=== PATIENT | female | born 1980 | race Two or more races ===

== ENCOUNTER 2016-11-07 18:04 | Emergency (ER) | payer OTHER ==
--- NOTE | 2016-11-07 18:34 | UC ---
Headache HPI - HPI Summary HPI Summary: 36 yo female with the onset of her typical headache yesterday bandlike around head and slightly pounding today headache got worse associated with photophobia headache now involves just her left side has never had a similar gerard headache was severe earlier but has eased up - History Of Current Complaint Chief Complaint: UCHeadache Stated Complaint: HEADACHE Time Seen by Provider: 11/07/16 18:33 Hx Obtained From: Patient Hx Last Menstrual Period: last week Onset/Duration: Sudden Onset Onset Of Symptoms: Gradual Initially Headache Was: "Worst Headache Ever", Initial Pain Scale(0-10)= - 4 Currently Pain Is: Current Pain Scale(0-10)= - 6 Pain Scale Used: 0-10 Numeric Timing: Constant Character: Throbbing Location of Headache: Temporal - Left Aggravating Factor(s): Bright Lights Associated Signs And Symptoms: Negative: Dizziness, Seizure, Nausea, Vomiting, Sinus Pressure, Fever, Neck Pain, Neck Stiffness, Decreased LOC, Visual Changes - Allergies/Home Medications Allergies/Adverse Reactions: Allergies Allergy/AdvReac Type Severity Reaction Status Date / Time No Known Allergies Allergy Verified 11/07/16 18:16 PMH/Surg Hx/FS Hx/Imm Hx Previously Healthy: Yes - Surgical History Surgical History: Yes Surgery Procedure, Year, and Place: wisdom teeth extraction 10/25/16, Appendectomy. Growth on ovary removed 2010 - Family History Known Family History: Positive: Hypertension, Other - migraines - Social History Alcohol Use: Occasionally Alcohol Amount: once a week Substance Use Type: None Smoking Status (MU): Never Smoked Tobacco Review of Systems Constitutional: Negative Skin: Negative Eyes: Photophobia ENT: Negative Respiratory: Negative Cardiovascular: Negative Gastrointestinal: Negative Genitourinary: Negative Motor: Negative Neurovascular: Negative Musculoskeletal: Negative Neurological: Headache Psychological: Negative Is Patient Immunocompromised?: No All Other Systems Reviewed And Are Negative: Yes Physical Exam Triage Information Reviewed: Yes Appearance: Well-Appearing, No Pain Distress, Well-Nourished Vital Signs: Initial Vital Signs Temp 97.9 F 11/07/16 18:10 Pulse 66 11/07/16 18:10 Resp 18 11/07/16 18:10 BP 129/84 11/07/16 18:10 Pulse Ox 100 11/07/16 18:10 Eyes: Positive: Conjunctiva Clear ENT: Positive: Hearing grossly normal. Negative: Nasal congestion, Nasal drainage, Tonsillar exudate, Trismus, Muffled/hoarse voice Dental: Negative: Gross Decay/Caries @, Dental Fracture @ Neck: Positive: Supple, Nontender, No Lymphadenopathy Respiratory: Positive: Lungs clear, Normal breath sounds, No respiratory distress Cardiovascular: Positive: RRR, No Murmur Musculoskeletal: Positive: ROM Intact, No Edema Neurological: Positive: Alert Psychological Exam: Normal Skin Exam: Normal Diagnostics - Radiology No standard instances Xray Interpretation: No Acute Changes Radiology Interpretation Completed By: Radiologist Headache Course/Dx - Differential Dx/Diagnosis Provider Diagnoses: headache-suspect migraine Discharge - Discharge Plan Condition: Stable Disposition: HOME Prescriptions: Naproxen Sodium [Naproxen Sodium 500 MG TAB] 500 mg PO BID PRN #30 tab PRN Reason: Pain Patient Education Materials: Acute Headache (ED) Referrals: [facility]ICIAN REFERRAL [Outside] - As Soon As Possible (call to find a local MD ) Additional Instructions: to ER if symptoms worsen recheck in 1-2 days if not better
--- NOTE | 2016-11-07 19:09 | RAD ---
INDICATION: Left-sided headache COMPARISON: None. TECHNIQUE: Contiguous axial sections of the brain were obtained from the skull base to the vertex without contrast. FINDINGS: The ventricles, cisterns and sulci are within normal limits. The denny-white matter differentiation is adequately maintained and there is no sulcal effacement. No significant focal abnormality or mass effect is present. There is no evidence for intracranial hemorrhage. No significant focal osseous abnormality is present. The visualized portion of the paranasal sinuses and mastoid air cells appear clear. IMPRESSION: Normal CT of the brain.
[2016-11-07] MEDS ORDERED: Naproxen TAB* 250 MG PO ONE (19:21)
== END 2016-11-07 19:26 | disposition home or self-care (01) ==
LOC: UCEAST 18:04
DX: G43.909 Migraine, unspecified, not intractable, without status migrainosus (principal)
CPT/HCPCS: 70450; 99202; A9270-GY; G0463

== ENCOUNTER 2018-02-12 08:39 | Emergency (ER) | payer OTHER ==
[2018-02-12 08:53] VITALS: BP 147/99
[2018-02-12] MEDS ORDERED: Aspirin 81 mg CHEW TAB* 81 MG TAB.CHEW PO ONE (09:02)
--- NOTE | 2018-02-12 09:05 | UC ---
Cardiac HPI - HPI Summary HPI Summary: WOKE UP THIS MORNING WITH SHARP LEFT-SIDED CHEST PAIN THAT RADIATES THROUGH TO HER BACK. WORSE WITH EXERTION AND BETTER WITH REST. DENIES SHORTNESS OF BREATH , NAUSEA, DIAPHORESIS. NO PERSONAL OR FAMILY HISTORY OF CARDIAC DISEASE. PT IS A NON SMOKER. NO HORMONE USE. CALLED HER PCP OFFICE WHO ADVISED SHE PRESENT TO THE EMERGENCY DEPARTMENT BUT THE PATIENT DECIDED TO COME HERE INSTEAD. - History of Current Complaint Chief Complaint: UCChestPain Stated Complaint: CHEST PAIN Time Seen by Provider: 02/12/18 08:40 Hx Obtained From: Patient Hx Last Menstrual Period: 01/31/18 Onset/Duration: Sudden Onset, Lasting Hours, Still Present Timing: Constant Initial Severity: Moderate Current Severity: Moderate Pain Intensity: 7 Chest Pain Location: Left Anterior Character: Sharp/Stabbing Aggravating Factor(s): Exertion Alleviating Factor(s): Rest Associated Signs & Symptoms: Positive: Back Pain - Allergy/Home Medications Allergies/Adverse Reactions: Allergies Allergy/AdvReac Type Severity Reaction Status Date / Time No Known Allergies Allergy Verified 02/12/18 08:52 PMH/Surg Hx/FS Hx/Imm Hx Previously Healthy: Yes - Surgical History Surgical History: Yes Surgery Procedure, Year, and Place: wisdom teeth extraction 10/25/16, Appendectomy. Growth on ovary removed 2010 - Family History Known Family History: Positive: Hypertension, Other - migraines - Social History Alcohol Use: Occasionally Alcohol Amount: once a week Substance Use Type: None Smoking Status (MU): Never Smoked Tobacco Review of Systems All Other Systems Reviewed And Are Negative: Yes Constitutional: Positive: Fever Skin: Positive: Negative Respiratory: Positive: Negative Cardiovascular: Positive: Chest Pain Gastrointestinal: Positive: Negative Physical Exam Triage Information Reviewed: Yes Appearance: Well-Appearing, No Pain Distress, Well-Nourished Vital Signs: Initial Vital Signs Temp 97.6 F 02/12/18 08:48 Pulse 107 02/12/18 08:48 Resp 18 02/12/18 08:48 BP 147/99 02/12/18 08:48 Pulse Ox 97 02/12/18 08:48 Vital Signs Reviewed: Yes Eyes: Positive: Conjunctiva Clear ENT: Positive: Hearing grossly normal, Pharynx normal, TMs normal Neck: Positive: Supple, Nontender, No Lymphadenopathy Respiratory Exam: Normal Cardiovascular: Positive: Tachycardia Abdomen Description: Positive: Soft Musculoskeletal: Positive: No Edema Neurological: Positive: Alert Psychological: Positive: Age Appropriate Behavior Skin: Negative: Rashes Diagnostics - EKG Cardiac Rate: Tachycardia - 100BPM Cardiac Rhythm: Sinus: Normal Ectopy: None ST Segment: Normal - Assessment/Plan Course Of Treatment: DISCUSSED WITH PATIENT HER LOW RISK FOR CARDIAC DISEASE. PAIN MAY BE MUSCULOSKELETAL IN NATURE BUT WE ARE UNABLE TO DO A CARDIAC WORKUP HERE. PATIENT IS CONCERNED ABOUT HER HEART AND WISHES TO BE EVALUATED IN THE EMERGENCY DEPARTMENT. PT OFFERED TRANSPORT TO THE ED BY AMBULANCE BUT DECLINES. ADVISED THAT BY NOT TRAVELING IN A MONITORED SETTING SHE COULD BE RISKING WORSENING OF HER CONDITION THAT COULD POSE A THREAT TO HER LIFE, HEALTH AND MEDICAL SAFETY. SHE VERBALIZES UNDERSTANDING AND CONTINUES TO DECLINE AMBULANCE TRANSFER. - Clinical Impression Provider Diagnosis: Chest pain Discharge - Sign-Out/Discharge Documenting (check all that apply): Patient Departure All imaging exams completed and their final reports reviewed: No Studies - Discharge Plan Condition: Stable Disposition: TRANS HIGHER LVL OF CARE FAC Patient Education Materials: Chest Pain (ED) Referrals: Irene Multani MD [Primary Care Provider] - If Needed Additional Instructions: YOU RECEIVED 4 ASA 81MG IN THE . GO DIRECTLY TO [facility] [place] ED FROM HERE FOR FURTHER EVALUATION. YOU HAVE DECLINED TRANSFER TO THE ED BY AMBULANCE. BE ADVISED THAT BY NOT TRAVELING IN A MONITORED SETTING YOU COULD BE RISKING WORSENING OF YOUR CONDITION THAT COULD POSE A THREAT TO YOUR LIFE, HEALTH AND MEDICAL SAFETY. - Billing Disposition and Condition Condition: STABLE Disposition: Trans Higher Lvl of Care Fac
== END 2018-02-12 09:10 | disposition short-term general hospital (02) ==
LOC: UCEAST 08:39
DX: R07.9 Chest pain, unspecified (principal)
CPT/HCPCS: 93005; 99202; A9270-GY; G0463

== ENCOUNTER 2018-07-01 21:35 | Emergency (ER) | payer OTHER ==
[2018-07-01] MEDS ORDERED: Ibuprofen TAB* 600 MG PO ONE (21:44)
--- NOTE | 2018-07-01 21:50 | UC ---
Lower Extremity/Ankle HPI - HPI Summary HPI Summary: injured left ankle sliding in to 3rd base about 30 minutes ago. has been able to WB- - History of Current Complaint Chief Complaint: UCLowerExtremity Stated Complaint: ANKLE INJURY Time Seen by Provider: 07/01/18 21:40 Hx Obtained From: Patient ?: No Onset/Duration: Sudden Onset Severity Initially: Mild Severity Currently: Mild Aggravating Factor(s): Standing, Ambulation Alleviating Factor(s): Rest, Elevation Able to Bear Weight: Yes - Allergies/Home Medications Allergies/Adverse Reactions: Allergies Allergy/AdvReac Type Severity Reaction Status Date / Time No Known Allergies Allergy Verified 07/01/18 21:50 PMH/Surg Hx/FS Hx/Imm Hx Previously Healthy: Yes - Surgical History Surgical History: Yes Surgery Procedure, Year, and Place: wisdom teeth extraction 10/25/16, Appendectomy. Growth on ovary removed 2010 - Family History Known Family History: Positive: Hypertension, Other - migraines Negative: Cardiac Disease - Social History Occupation: Employed Full-time Lives: With Family Alcohol Use: Occasionally Alcohol Amount: once a week Substance Use Type: None Smoking Status (MU): Never Smoked Tobacco Review of Systems All Other Systems Reviewed And Are Negative: Yes Constitutional: Positive: Negative Skin: Positive: Negative Eyes: Positive: Negative ENT: Positive: Negative Respiratory: Positive: Negative Cardiovascular: Positive: Negative Gastrointestinal: Positive: Negative Genitourinary: Positive: Negative Motor: Positive: Negative Neurovascular: Positive: Negative Musculoskeletal: Positive: Arthralgia - left medial and lateral ankle Neurological: Positive: Negative Psychological: Positive: Negative Is Patient Immunocompromised?: No Physical Exam Triage Information Reviewed: Yes Appearance: Well-Appearing, No Pain Distress, Well-Nourished Vital Signs Reviewed: Yes Eye Exam: Normal Eyes: Positive: Conjunctiva Clear ENT Exam: Normal ENT: Positive: Normal ENT inspection, Hearing grossly normal. Negative: Trismus , Muffled voice, Hoarse voice Dental Exam: Normal Neck exam: Normal Neck: Positive: Supple, Nontender Respiratory Exam: Normal Respiratory: Positive: Chest non-tender, No respiratory distress, No accessory muscle use Cardiovascular Exam: Normal Cardiovascular: Positive: RRR, Pulses Normal, Brisk Capillary Refill Musculoskeletal Exam: Other - left ankle Musculoskeletal: Positive: Strength Limited @ - minimal limitation, ROM Limited @ - minimal limitation, Edema @ Neurological Exam: Normal Neurological: Positive: Alert, Muscle Tone Normal Psychological Exam: Normal Psychological: Positive: Normal Response To Family Skin Exam: Normal Diagnostics - Radiology No standard instances Radiology Interpretation Completed By: ED Physician - displaced distal fibula fx Lower Extremity Course/Dx - Course Course Of Treatment: non weight bearing, cam boot crutches, pain control maddie, follow with orthopedic MD 1-2 days - Differential Dx/Diagnosis Provider Diagnosis: Closed fracture of lateral malleolus of left ankle Discharge - Sign-Out/Discharge Documenting (check all that apply): Patient Departure All imaging exams completed and their final reports reviewed: No - Discharge Plan Condition: Stable Disposition: HOME Prescriptions: Hydrocodone/Acetaminophen [Hydrocodone-Acetamin 5-325 mg] 1 - 2 each PO Q4HR PRN #20 tablet MDD 8 PRN Reason: pain Ibuprofen TAB* [Motrin TAB* 600 MG] 600 mg PO Q6H PRN #40 tab PRN Reason: pain Patient Education Materials: Ankle Fracture (ED), Crutch Instructions (ED), R.I.C.E. Treatment (ED) Forms: *Work Release Referrals: Gallo Ferris MD [Medical Doctor] - (1-2 days---call in morning for appointment) Additional Instructions: NO change in initial management. Needs ortho follow up - Billing Disposition and Condition Condition: STABLE Disposition: Home - Attestation Statements Provider Attestation: I was available for consult. This patient was seen by the LASHELL. The patient was not presented to , seen by or examined by mt -Gabbi Garcia MD
[2018-07-01 22:03] VITALS: BP 119/87
[2018-07-01] MEDS ORDERED: HYDROcodone/ACETAMIN 5-325 MG* 1 TAB PO ONE (22:08)
--- NOTE | 2018-07-02 10:51 | UC ---
- EKG/XRAY/CT Xray Comments: left ankle - oblique fracture of distal fibular with widening of mortise Course/Dx - Diagnoses Provider Diagnoses: Closed fracture of lateral malleolus of left ankle Discharge - Sign-Out/Discharge Documenting (check all that apply): Post-Discharge Follow Up All imaging exams completed and their final reports reviewed: Yes - Discharge Plan Condition: Stable Disposition: HOME Prescriptions: Hydrocodone/Acetaminophen [Hydrocodone-Acetamin 5-325 mg] 1 - 2 each PO Q4HR PRN #20 tablet MDD 8 PRN Reason: pain Ibuprofen TAB* [Motrin TAB* 600 MG] 600 mg PO Q6H PRN #40 tab PRN Reason: pain Patient Education Materials: Ankle Fracture (ED), Crutch Instructions (ED), R.I.C.E. Treatment (ED) Forms: *Work Release Referrals: Gallo Ferris MD [Medical Doctor] - (1-2 days---call in morning for appointment) Additional Instructions: NO change in initial management. Needs ortho follow up - Billing Disposition and Condition Condition: STABLE Disposition: Home
== END 2018-07-01 22:35 | disposition home or self-care (01) ==
LOC: UCEAST 21:35
DX: S82.62XA Displaced fracture of lateral malleolus of left fibula, initial encounter for closed fracture (principal); W18.39XA Other fall on same level, initial encounter; Y93.64 Activity, baseball; Y92.320 Baseball field as the place of occurrence of the external cause; Y99.8 Other external cause status
CPT/HCPCS: 99213; A9270-GY; G0463

== ENCOUNTER 2018-07-05 10:19 | Day surgery (SDC) | payer OTHER ==
[~2018-07-05 10:19] MED LIST: Buffered Lidocaine 1% SYRIN* 1 ML/SYRINGE INTRADERM ONE; Dexamethasone IV* 4 MG/ML 1 ML (4 MG) IV SLOW PU ONE; Famotidine IV* 10 MG/ML 2 ML (20 mg) IV ONE; Lactated Ringers 1000 ML Bag* 1,000 ML IV SCH
[2018-07-05] MEDS ORDERED: Famotidine IV* 10 MG/ML 2 ML (20 mg) ONE (11:37)
[2018-07-05] MEDS ORDERED: Dexamethasone IV* 4 MG/ML 1 ML (4 MG) ONE (11:37)
[2018-07-05] MEDS ORDERED: KETAMINE HCL* 50 MG/ML 10 ML VIAL ONE (11:58)
[2018-07-05] MEDS ORDERED: fentaNYL* 50 MCG/ML 2 ML VIAL (100 MCG VIAL) ONE (11:58)
[2018-07-05] MEDS ORDERED: Midazolam* 1 MG/ML 5 ML VIAL (5 MG) ONE (11:58)
[2018-07-05] MEDS ORDERED: Propofol* 10 MG/ML 20 ML BTL ONE (11:59)
[2018-07-05] MEDS ORDERED: Lidocaine 2% PF * 5 ML VIAL ONE (11:59)
[2018-07-05] MEDS ORDERED: ceFAZolin 2 GM PREMIX in ORs 2 GM/50 ML BAG ONE (12:04)
[2018-07-05] MEDS ORDERED: DiMENhydriNATE IV* 50 MG/ML VIAL IV PUSH PRN (12:10)
[2018-07-05] MEDS ORDERED: Naloxone* 0.4 MG/ML 1 ML VIAL IV PRN (12:10)
[2018-07-05] MEDS ORDERED: HYDROcodone/ACETAMIN 5-325 MG* 1 TAB PO PRN (12:10)
[2018-07-05] MEDS ORDERED: oxyCODONE/Acetamin 5/325 MG* TAB PO PRN (12:10)
[2018-07-05] MEDS ORDERED: fentaNYL* 50 MCG/ML 2 ML VIAL (100 MCG VIAL) IV PRN (12:10)
[2018-07-05] MEDS ORDERED: PROCHLORPERAZINE INJ 5 MG/ML 2 ML VIAL IV PRN (12:10)
[2018-07-05] MEDS ORDERED: Ketorolac INJ* 30 MG/ML 1 ML VIAL ONE (12:24)
[2018-07-05] MEDS ORDERED: Bupivacaine 0.5% W/EPI SDV* 30 ML VIAL ONE (12:45)
[2018-07-05 15:44] VITALS: BP 144/93
--- NOTE | 2018-07-06 23:28 | OP ---
DATE OF OPERATION: [facility] DATE OF : 1980 SURGEON: Gallo Ferris MD CRANE LADLE PERSON: LAURA Rojas. A physician events assistant was required for the length of the procedure for assistance with patient positioning, retraction , and closure. ANESTHESIOLOGIST: Dr. Chela Hager. ANESTHESIA: General anesthesia, local anesthesia with 10 cc of Marcaine 0.5% with epinephrine. PRE-OP DIAGNOSES: 1. Left ankle lateral malleolus fracture, displaced. 2. Possible left ankle syndesmosis injury, unstable. POST-OP DIAGNOSES: 1. Left ankle lateral malleolus fracture, displaced. 2. No unstable left ankle syndesmosis injury. OPERATIVE PROCEDURE: Open reduction and internal fixation, left ankle lateral malleolus fracture. ANTIBIOTICS: Ancef 2 g IV. IV FLUIDS: 1100 cc crystalloid. TOURNIQUET TIME: 60 minutes at 300 mmHg, left thigh. [id number] TIME: 57 minutes. SPECIMEN: None. IMPLANTS: Synthes one-third tubular 7-hole plate with nonlocking and locking screws through it, both cortical and cancellous. There is also a 3.5 mm fully threaded cortical screw placed using lag technique across the fracture directly. RADIATION EXPOSURE: C-arm was utilized for 13 seconds with an exposure of 0.015 mGy m2. COMPLICATIONS: None. ESTIMATED BLOOD LOSS: Minimal. 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 I saw her in the clinic and x-rays revealed a displaced lateral malleolus fracture with an increased medial clear space. I booked the patient for open reduction and internal fixation left ankle lateral malleolus and possible open reduction and internal fixation left ankle syndesmosis. I discussed the risks and benefits of nonoperative and operative treatment. I placed the patient in a short-leg cast in clinic and instructed her on strict bedrest with elevation of the left lower extremity above the heart for the following 3 days to make her appropriate for surgery as she was very swollen in clinic. DESCRIPTION OF PROCEDURE: In preoperative holding, we removed the patient's short- leg cast. We evaluated the skin and soft tissues of the left ankle. The patient's soft tissue swelling had reduced significantly from clinic. The patient's skin could be wrinkled laterally along the leg of the planned surgical incision. I therefore made the decision to proceed as planned for surgery. The patient completed a written consent in preoperative holding and I initialed the operative extremity in preoperative holding. The patient was taken back to the operating room and placed supine on the operating room table. A bump was placed under the left hemipelvis. Tourniquet was placed around the left thigh. Left lower extremity was prepped and draped. Surgical time- out was performed. The large C-arm had been brought in the room. Esmarch was applied and the tourniquet was elevated to 300 mmHg. I made a standard approach to the lateral ankle. I dissected down to bone, not encountering a branch of the superficial peroneal nerve. I encountered the fracture site as anticipated. I cleaned out fibrous debris within the fracture site with the curette and a rongeur. Irrigation. We reduced the fracture with traction and internal rotation. Placed 2 clamps across the fracture. I placed a 3.5 mm screw across the fracture site using lag technique. This held very firmly the fracture pieces together. I removed clamps. I picked a 7- hole plate that I liked the length of. Two holes distally to the fracture and 3 -4 holes proximal to the fracture would be feasible. I engaged the appropriate position of the plate based on C-arm image. I contoured the plate. I applied the plate and placed 1 screw, nonlocking, proximal and distal to the fracture site. I obtained x-ray imaging that showed excellent placement of plate. I filled the remainder of the plate with screws proximal and distal to the fracture line leaving one hole open for possible syndesmotic screw. I tested the syndesmosis. I did so with external rotation stress test as well as a cotton test. Both showed no increase in the medial clear space or the tibiofibular clear space. I was content that the patient did not need fixation of the syndesmosis. I filled one additional hole proximal to the fracture line with a non-locking screw. My screws for the plate were mostly 3.5 mm nonlocking cortical. However, proximal and distal to the fracture line, I had one locking screw 3.5 mm. Also , distal to the fracture line I had one 4-0 cancellous nonlocking screw. I obtained final x-ray images. I had noted before that my lag screw was too long. Therefore, I took out the 24 mm screw and replaced it with a 20 mm screw which had a perfect length. I obtained 3 final x-rays images, which showed excellent bony reduction and excellent placement of fixation. Irrigation. Closure of some fascial layer with [id number] stitches using Vicryl 2-0 suture. Closure of the subcutaneous layer with buried simple stitches using Vicryl 3-0 suture. This layer was under no tension whatsoever. I then closed the skin with a running stitch using nylon suture, either 3-0 or 4 -0. I next placed a local anesthetic just proximal to the surgical wound, 10 cc of 0.5% with epinephrine. Xeroform, 4x4s, sterile Webril. We next placed a splint. This was made of plaster, posterior slab, and then a sugar-tong. We over-wrapped with an Samir bandage. The patient was awakened, extubated and brought to the PACU. DISPOSITION: The patient was discharged home when medically stable. We prescribed the patient Percocet as needed for pain control, a short course of Keflex for infection prophylaxis and aspirin b.i.d. x2 weeks for DVT prophylaxis. Given that the patient had some preoperative diffuse swelling, I encouraged her on some strict left lower extremity elevation for 3 to 4 days postoperatively that could be relaxed subsequently. The patient will follow up with me in 10 to 14 days postoperatively in clinic. [id number]/CPS #: [id number] MARGARET
== END 2018-07-05 15:46 | disposition home or self-care (01) ==
LOC: OR 10:19
PROVIDERS: ATTEND Orthopaedic Surgery
DX: S82.62XA Displaced fracture of lateral malleolus of left fibula, initial encounter for closed fracture (principal); F41.9 Anxiety disorder, unspecified; W18.39XA Other fall on same level, initial encounter; Y93.64 Activity, baseball; Y92.320 Baseball field as the place of occurrence of the external cause
CPT/HCPCS: 76000; 81025; C1713; C1776; J0690; J1100; J1885; J2250; J2704; J3010

== ENCOUNTER 2018-12-05 20:22 | Emergency (ER) | payer OTHER ==
[2018-12-05 20:32] VITALS: BP 125/79
--- NOTE | 2018-12-05 21:34 | UC ---
Skin Complaint HPI - HPI Summary HPI Summary: Removed a tick completely earlier this evening and comes for advice about management. No engorgement. Believes that it was brought in by one of her pets as she does not spend much time outdoors. - History of Current Complaint Chief Complaint: UCSkin Time Seen by Provider: 12/05/18 21:24 Stated Complaint: TICK Hx Obtained From: Patient Hx Last Menstrual Period: [id number] Onset/Duration: Sudden Onset, Lasting Hours Skin Exposure Onset/Duration: Hours Ago Timing: Constant Onset Severity: Mild Current Severity: None Pain Intensity: 0 Location: Discrete Aggravating Factor(s): Nothing Alleviating Factor(s): Nothing Associated Signs & Symptoms: Positive: Negative - Allergy/Home Medications Allergies/Adverse Reactions: Allergies Allergy/AdvReac Type Severity Reaction Status Date / Time No Known Allergies Allergy Verified 12/05/18 20:32 Home Medications: Home Medications NK [No Home Medications Reported] 12/05/18 [History Confirmed 12/05/18] PMH/Surg Hx/FS Hx/Imm Hx Previously Healthy: Yes - Surgical History Surgical History: Yes Surgery Procedure, Year, and Place: Left foot fracture repair 06/23. wisdom teeth extraction 10/25/16,. Appendectomy. Growth on ovary removed 2010 - Family History Known Family History: Positive: Hypertension, Other - migraines, Non- Contributory Negative: Cardiac Disease - Social History Occupation: Employed Full-time Lives: With Family Alcohol Use: Weekly Alcohol Amount: once a week Substance Use Type: None Smoking Status (MU): Never Smoked Tobacco Review of Systems All Other Systems Reviewed And Are Negative: Yes Constitutional: Positive: Negative Skin: Positive: Other - tick bite Musculoskeletal: Positive: Negative Neurological: Positive: Negative Psychological: Positive: Negative Is Patient Immunocompromised?: No Physical Exam Triage Information Reviewed: Yes Appearance: Well-Appearing, No Pain Distress Vital Signs: Initial Vital Signs Temp 99.5 F 12/05/18 20:28 Pulse 75 12/05/18 20:28 Resp 16 12/05/18 20:28 BP 125/79 12/05/18 20:28 Pulse Ox 99 12/05/18 20:28 Respiratory Exam: Normal Cardiovascular Exam: Normal Psychological Exam: Normal Skin Exam: Other - 5 mm area of ertyhema anterior left abdomen. Course/Dx - Course Course Of Treatment: No indication for prevention, attachment less than 24 hours, no engorgement. - Differential Diagnoses - Skin Complaint Differential Diagnoses: Tick Born Illness, Other - tick bite - Diagnoses Provider Diagnosis: Tick bite of abdomen Discharge ED - Sign-Out/Discharge Documenting (check all that apply): Patient Departure All imaging exams completed and their final reports reviewed: No Studies - Discharge Plan Condition: Good Disposition: HOME Patient Education Materials: Tick Bite (ED) Referrals: Irene Multani MD [Primary Care Provider] - Additional Instructions: As discussed, you will observe the area for any expanding rash suggestive of erythema migrans, and observe for fever or joint pain. Given the short duration of the tick bite, there is no indication for preventative antibiotics. - Billing Disposition and Condition Condition: GOOD Disposition: Home
== END 2018-12-05 21:45 | disposition home or self-care (01) ==
LOC: UCEAST 20:22
DX: S30.861A Insect bite (nonvenomous) of abdominal wall, initial encounter (principal); W57.XXXA Bitten or stung by nonvenomous insect and other nonvenomous arthropods, initial encounter; Y92.9 Unspecified place or not applicable
CPT/HCPCS: 99212; G0463